=== PATIENT | male | born 1955 | race Hispanic/Latino ===

== ENCOUNTER 2016-10-08 17:49 | Emergency (ER) | payer BC, OTHER ==
[2016-10-08] MEDS ORDERED: Fluorescein Opthalmic Strip ONE (18:29)
[2016-10-08] MEDS ORDERED: Tetracaine HCl 0.5% Ophth Soln 2 ML Bottle ONE (18:36)
[2016-10-08] MEDS ORDERED: Erythromycin Base 0.5% Oint 1 GM TUBE ONE (18:42)
== END 2016-10-08 19:06 | disposition home or self-care (01) ==
LOC: NAV ERS 17:49
DX: H10.9 Unspecified conjunctivitis (principal); E78.5 Hyperlipidemia, unspecified; I10 Essential (primary) hypertension
CPT/HCPCS: 99282